=== PATIENT | female | born 1945 | race Caucasian/White ===

== ENCOUNTER → 2016-05-07 | Outpatient (CLI) | payer MEDICARE, OTHER ==
--- NOTE | 2016-05-07 14:10 | MRI ---
EXAM DESCRIPTION: Lumbar Spine w/o Contrast CLINICAL HISTORY: BACK PAIN COMPARISON: None. TECHNIQUE: Multiplanar, multisequence MRI of the lumbar spine was performed without contrast. FINDINGS: GENERAL Lumbar vertebral bodies show normal height without compression deformity. There is mild levocurvature of the mid lumbar spine. Rudimentary disc space at S1-2 is seen. The L5-S1 disc space is seen on transaxial T2 image three. Conus medullaris terminates at T12-L1 and is unremarkable. There is minimal bone marrow edema in the endplates around the L3-4 disc space towards the right. Visualized intra-abdominal and retroperitoneal structures show no acute findings. L1-2 No significant findings. L2-3 Disc desiccation and mild loss of disc space height with 3 mm broad-based disc bulge flattens the ventral surface of the thecal sac contributing to mild spinal canal stenosis with mild lateral recess and foraminal encroachment. L3-4 Disc desiccation and mild loss of disc space height with 4 mm broad-based disc bulge. There is mild bilateral facet hypertrophic and degenerative change including ligamentum flavum thickening contributing to mild spinal canal stenosis. There is moderate right and mild left lateral recess encroachment with moderate right and mild left foraminal encroachment. L4-5 Mild disc desiccation and loss of disc space height is seen with mild bilateral facet hypertrophic and degenerative changes including ligamentum flavum thickening contributing to mild spinal canal stenosis. There is mild bilateral foraminal encroachment. L5-S1 Disc desiccation and mild loss of disc space height with mild right greater than left facet hypertrophic and degenerative changes. There are Modic type II degenerative endplate signal changes towards the right. Mild right greater than left foraminal encroachment seen. IMPRESSION: Level [id number] disc degenerative changes and mild facet arthropathy of the lumbar spine is seen with mild levocurvature of the lumbar spine. There is multifactorial mild spinal canal stenosis with moderate right lateral recess and foraminal encroachment at L3-4. Electronically signed by: Sergio Hammond MD 05/07/2016 2:09 PM [employer]
== END | disposition home or self-care (01) ==
LOC: MRI 08:58
PROVIDERS: ATTEND Family Medicine
DX: M54.5 Low back pain (principal)

== ENCOUNTER → 2017-08-12 | Outpatient (CLI) | payer MEDICARE, OTHER | LOC: GMAL 13:28 | PROVIDERS: ATTEND Family Medicine | DX: D51.3 Other dietary vitamin B12 deficiency anemia (principal); E55.9 Vitamin D deficiency, unspecified; N39.0 Urinary tract infection, site not specified ==

== ENCOUNTER → 2018-01-06 | Outpatient (CLI) | payer MEDICARE, OTHER | LOC: GMAL 10:52 | PROVIDERS: ATTEND Family Medicine | DX: R53.83 Other fatigue (principal); E55.9 Vitamin D deficiency, unspecified; I50.89 Other heart failure ==